=== PATIENT | female | born 1970 | race Caucasian/White ===

== ENCOUNTER 2023-04-05 18:08 | Emergency (ER) | payer OTHER ==
[~2023-04-05] VITALS: Ht 160 cm; Wt 75.3 kg
[2023-04-05 18:32] VITALS: BP 134/88; PULSE 88; RESP 18; TEMP 97.5; O2SAT 100
[2023-04-05] MEDS ORDERED: ACET-10509 PO (19:06)
[2023-04-05] MEDS ORDERED: KETOROLAC 60 MG/2 ML VIAL IM ONE (19:10)
== END 2023-04-05 19:17 | disposition home or self-care (01) ==
LOC: MED 18:08
DX: L02.413 Cutaneous abscess of right upper limb (principal); B34.9 Viral infection, unspecified; I10 Essential (primary) hypertension; Z79.899 Other long term (current) drug therapy; Z88.0 Allergy status to penicillin
CPT/HCPCS: 96372; 99283; J1885